=== PATIENT | female | born 1990 | race African-American/Black ===

== ENCOUNTER → 2017-04-28 | Outpatient (CLI) | payer BC ==
--- NOTE | 2017-04-28 10:24 | KCIC ---
Bilateral breast ultrasound: Reason for examination: Breast pain in the upper-outer quadrants with lumps in the axilla on clinical exam. Bilateral whole breast ultrasound including evaluation of all 4 quadrants and the retroareolar and axillary regions of both breasts was performed. The right breast shows no discrete cystic or solid nodules or architectural distortions. No abnormal appearing lymph nodes are seen in the axilla. The left breast shows no discrete cystic or solid nodules within the dense parenchyma. No abnormal appearing lymph nodes are seen in the left axilla. IMPRESSION: No focal or suspicious abnormalities evident in the right or left breast or in either axilla. Recommend routine mammographic follow-up at age 39. BI-RADS Category 1: Negative. "Our facility is accredited by the [employer] Mammography Program." This patient's information has been entered into a reminder system for the patient to be notified with the results of her examination and a target date for the next mammogram. Electronically signed by: Pura Chaves MD (04/28/2017 10:21 AM)
== END | disposition home or self-care (01) ==
LOC: KCIC US 09:41
PROVIDERS: ATTEND Family Medicine
DX: N63 Unspecified lump in breast (principal)
CPT/HCPCS: 76641